=== PATIENT | female | born 1985 | race Two or more races ===

== ENCOUNTER 2019-11-12 10:29 | Emergency (ER) | payer MEDICAID, OTHER ==
[~2019-11-12] VITALS: Ht 149.9 cm; Wt 52.7 kg
[~2019-11-12 10:29] MED LIST: NITR25OR2; PHEN95TA23
[2019-11-12 11:23] VITALS: BP 140/89
== END 2019-11-12 16:10 | disposition home or self-care (01) ==
LOC: ER 10:29
DX: J06.9 Acute upper respiratory infection, unspecified (principal)
CPT/HCPCS: 71045; 99283